=== PATIENT | female | born 2000 | race Caucasian/White ===

== ENCOUNTER 2020-10-29 12:18 | Emergency (ER) | payer OTHER ==
[~2020-10-29] VITALS: Ht 149.9 cm; Wt 56.8 kg
[2020-10-29 14:19] LABS: APPEARANCE,URINE CLOUDY (CLEAR); BILIRUBIN,URINE NEGATIVE (NEGATIVE); GLUCOSE, URINE (UA) NEGATIVE (NEGATIVE); KETONES,URINE NEGATIVE (NEGATIVE); LEUKOCYTE ESTERASE ,URINE MODERATE (NEGATIVE); NITRATE,URINE NEGATIVE (NEGATIVE); OCCULT BLOOD,URINE NEGATIVE (NEGATIVE); PH,URINE 7.5 (5.0-8.0); PROTEIN,URINE NEGATIVE (NEGATIVE)
[2020-10-29] MEDS ORDERED: DiphenhydrAMINE HCL 25 MG CAPSULE PO ONE (14:30)
[2020-10-29 14:42] LABS: BACTERIA,URINE Moderate /HPF (None Seen); RBC,URINE None Seen /HPF (0-2)
[2020-10-29 14:43] LABS: SQUAMOUS EPITHELIAL CELL,UR Moderate /LPF (None Seen)
[2020-10-29 14:46] LABS: BASOPHILS % (AUTO) 0.4 % (0.0-2.0); EOSINOPHILS % (AUTO) 0.9 % (1.0-6.0); HEMATOCRIT 44.4 % (36-46); HEMOGLOBIN 14.6 g/dL (12.0-16.0); LYMPHOCYTES # (AUTO) 2.5 K/uL (1.0-4.8); LYMPHOCYTES % (AUTO) 33.8 % (22.0-44.0); MEAN CORPUSCULAR HEMOGLOBIN 29.4 pg (26.0-34.0); MEAN CORPUSCULAR VOLUME 89 fL (80-100); MONOCYTES # (AUTO) 0.6 K/uL (0.1-1.0); MONOCYTES % (AUTO) 8.6 % (2.0-9.0); NEUTROPHILS # (AUTO) 4.2 K/uL (1.8-7.7); NEUTROPHILS % (AUTO) 56.3 % (40.0-70.0); PLATELET COUNT (AUTO) 294 K/uL (150-450); RED BLOOD CELL COUNT(AUTO) 4.98 MIL/uL (4.00-5.20); RED CELL DISTRIBUTION WIDTH 12.9 % (11.5-14.5)
[2020-10-29 15:00] LABS: ANION GAP -5 mmol/L (8-16); CALCIUM, TOTAL 8.7 mg/dL (8.8-10.5); CARBON DIOXIDE 27 mmol/L (22-29); CHLORIDE 104 mmol/L (98-107); CREATININE 0.76 mg/dL (0.60-1.30); GLOMERULAR FILTR. RATE CALC > 60 mL/min (>60); GLUCOSE,RANDOM 102 mg/dL (70-110); POTASSIUM 3.6 mmol/L (3.5-5.1); SODIUM SERUM 126 mmol/L (136-145); UREA NITROGEN, BLOOD 9 mg/dL (7-18)
[2020-10-29 15:06] LABS: ALANINE AMINOTRANSFERASE 18 U/L (12-78); ALBUMIN 4.3 g/dL (3.4-5.0); ALKALINE PHOSPHATASE 75 U/L (46-116); ASPARTATE AMINOTRANSFERASE 13 U/L (15-37); BILIRUBIN,TOTAL 0.6 mg/dL (0.1-1.0); LIPASE 91 U/L (73-393)
[2020-10-29] MEDS ORDERED: SODIUM CHLORIDE 0.9% 100 ML ONE (16:06)
[2020-10-29] MEDS ORDERED: IOHEXOL 350 MG/ML 100 ML VIAL ONE (16:06)
[2020-10-29 17:07] VITALS: BP 153/75
== END 2020-10-29 17:33 | disposition home or self-care (01) ==
LOC: EMS 12:27
DX: N30.90 Cystitis, unspecified without hematuria (principal); K59.00 Constipation, unspecified
CPT/HCPCS: 36415; 74177; 76856; 80053; 81001; 83690; 84703; 85025; 87086; 99285; A9575; J7050

== ENCOUNTER 2023-05-30 15:37 | Emergency (ER) | payer OTHER ==
[~2023-05-30] VITALS: Ht 149.9 cm; Wt 63.6 kg
[2023-05-30] MEDS ORDERED: NORG1TAB12 PO (15:48)
[2023-05-30] MEDS ORDERED: ACETAMINOPHEN 500 MG TABLET PO ONE (16:45)
[2023-05-30 18:17] VITALS: BP 106/52; PULSE 82; RESP 16; TEMP 99.2
== END 2023-05-30 18:20 | disposition home or self-care (01) ==
LOC: EMS 15:52
DX: M54.2 Cervicalgia (principal); M41.9 Scoliosis, unspecified
CPT/HCPCS: 70450; 72125; 99284

== ENCOUNTER 2023-11-06 14:36 | Emergency (ER) | payer OTHER ==
[~2023-11-06] VITALS: Ht 149.9 cm; Wt 70.0 kg
[~2023-11-06 14:36] MED LIST: NORG1TAB12 PO
[2023-11-06 14:41] VITALS: BP 136/85; PULSE 99; RESP 18; TEMP 98.5
[2023-11-06] MEDS ORDERED: AMOX1TAB15 PO (15:25)
[2023-11-06] MEDS: BACITRACIN 0.9 GM PACKET OINTMENT TP ONE (15:28)
== END 2023-11-06 15:33 | disposition home or self-care (01) ==
LOC: EMS 14:36
DX: S01.452A Open bite of left cheek and temporomandibular area, initial encounter (principal); W54.0XXA Bitten by dog, initial encounter; Y93.89 Activity, other specified; Y92.89 Other specified places as the place of occurrence of the external cause; Y99.8 Other external cause status
CPT/HCPCS: 99283